=== PATIENT | female | born 1960 | race Caucasian/White ===

== ENCOUNTER → 2020-10-14 | Outpatient (CLI) | payer OTHER | LOC: CT 15:09 | PROVIDERS: ATTEND Specialist | DX: S42.021A Displaced fracture of shaft of right clavicle, initial encounter for closed fracture (principal) ==

== ENCOUNTER → 2020-10-28 | Day surgery (SDC) | payer OTHER ==
[~2020-10-28] MED LIST: CEFAZOLIN SOD 1 GM/NS 50ML 100 ML IV ONE; CETIRIZINE HCL10 MG PO; DEXAMETHASONE SOD PHOS INJ 4 MG/ML VIAL ONE; FENTANYL CITRATE/PF 100MCG/2 ML INJ ONE; GLYCOPYRROLATE INJ 0.2 MG/ML VIAL ONE; LIDOCAINE 1% W/EPINEPHRINE 20 ML VIAL ONE; LIDOCAINE HCL 2% JELLY 5 ML TUBE ONE; LIDOCAINE HCL 2% LOCAL INJ 5 ML SDV VIAL INJ ONE; LIPITOR10 MG PO; MIDAZOLAM HCL 2 MG/2 ML VIAL ONE; NEOSTIGMINE 1 MG/ML 10ML VIAL ONE; ONDANSETRON HCL INJ 2MG/ML 2ML 2 MG/ML VIAL ONE; PROMETHAZINE HCL (IM) 25 MG/ML VIAL IM ONE; PROPOFOL IV EMULSION 10 MG/ML 20 ML VIAL ONE; ROCURONIUM BROMIDE 10 MG/ML 5ML VIAL IV ONE; ROPIVACAINE 0.5% 5 MG/ML 30 ML SDV ONE; SEVOFLURANE INHAL SOLN 250 ML PEN BTL ONE; SYNTHROID125 MCG PO
[2020-10-28 14:10] VITALS: BP 139/71
== END | disposition home or self-care (01) ==
LOC: OR 06:47
PROVIDERS: ATTEND Specialist
DX: S42.021A Displaced fracture of shaft of right clavicle, initial encounter for closed fracture (principal); E78.00 Pure hypercholesterolemia, unspecified; E05.90 Thyrotoxicosis, unspecified without thyrotoxic crisis or storm; I49.1 Atrial premature depolarization; X58.XXXA Exposure to other specified factors, initial encounter; Z91.040 Latex allergy status; Z01.810 Encounter for preprocedural cardiovascular examination; Z01.812 Encounter for preprocedural laboratory examination; Z01.818 Encounter for other preprocedural examination; Z20.822 Contact with and (suspected) exposure to COVID-19; Z87.891 Personal history of nicotine dependence
CPT/HCPCS: 23515; 71046; 76000; 93005; C1713 ×5; C1762; J0690; J1100; J2001 ×2; J2250; J2405; J2550; J2704; J2710; J2795; J3010; U0002